=== PATIENT | male | born 1960 | race Caucasian/White ===

== ENCOUNTER 2018-05-20 14:39 | Emergency (ER) | payer OTHER, SELFPAY ==
[2018-05-20] MEDS ORDERED: Ibuprofen 800 MG TAB ONE (15:39)
[2018-05-20] MEDS ORDERED: HYDROcodone/Acetaminophen 10/325 mg Tablet ONE (15:39)
--- NOTE | 2018-05-20 17:47 | RAD ---
RIGHT WRIST 3 VIEWS:: Date: 05/20/18 No acute fracture was seen. There is probably a cyst in the distal portion of the scaphoid. Carpal re lationships appear normal. A bony projection from the distal ulna suggests there might have been an o ld injury here. IMPRESSION: No acute traumatic findings. POS: HOME
== END 2018-05-20 16:01 | disposition home or self-care (01) ==
LOC: BURERS 14:39
DX: S63.501A Unspecified sprain of right wrist, initial encounter (principal); G47.00 Insomnia, unspecified; F17.210 Nicotine dependence, cigarettes, uncomplicated; W18.30XA Fall on same level, unspecified, initial encounter